=== PATIENT | female | born 1975 | race Caucasian/White ===

== ENCOUNTER 2025-07-25 16:58 | Observation (INO) ==
--- NOTE | 2025-07-25 17:02 | Emergency Department Note ---
Impression & Plan Stroke-like symptoms, Retinal hemorrhage of left eye, Dizziness ED Provider Note NAME: RICCI BURNS AGE: 49 SEX: F : 1975 ARRIVES VIA: Ambulance INFORMANT: Patient ED PROVIDER(S): Stephen Hilliard MD CHIEF COMPLAINT: Vision changes, referred PLAN: Disposition: Admit MEDICAL DECISION MAKING: The patient is a pleasant 49-year-old woman with a past medical history of fibromyalgia who presents to the emergency department via EMS referred by ophthalmology for evaluation of neurologic symptoms where the patient reports having unsteadiness in loss of vision in her left eye which began 2-3 days ago where she reported significant blurred vision in both eyes but then had worsening symptoms in her left eye yesterday. Patient adds that she was also having chest pain for the past 2-3 days and was seen at urgent care and was referred to [place] emergency department where she was seen yesterday and reports that they had ruled out a heart attack. Patient reports ongoing chest pain and neck pain which feels like a burning and has been constant. She has any fevers, chills, cough, congestion. She denies any significant headache. She reports she saw optometry in [place] today and had an eye exam where her left eye was dilated. She reports that she was told she had a "retinal hemorrhage" and they could not see the retina completely and she was referred to a retinal specialist. However, instead of going directly to the retinal specialist which was arranged she drove home accompanied by her teenage daughter instead since she felt to unsteady to drive to the retinal specialist. She did call their office and when she described all of her symptoms she was referred to the emergency department because she understood they suspected she may be having a "neurologic event" due to her symptoms which would not be explained by her optometry exam findings alone. We did attempt to obtain records from [place] and CT imaging was received by our radiology department electronically but images were unable to be uploaded to PACS at this time. On evaluation the patient is no distress, afebrile with heart in the 100s and vital signs otherwise stable. She appears clinically dry. Left eye is dilated secondary to recent ophthalmologic exam. The patient does appear to have gross vision intact of the left eye field of vision but reports difficulty seeing details. 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 Otherwise she exhibits no focal neurologic deficits. Retinal scanner images obtained however poor quality. Retinal versus vitreous hemorrhage noted without overt retinal detachment per my review of the limited view. EKG without overt acute ischemia. CXR negative for acute cardiopulmonary process per my personal preliminary review/interpretation. WBC within normal limits. H/H 10.5/32.9 without prior for comparison. Platelets within normal limits. Chemistry without metabolic acidosis. Electrolytes and LFTs without significant abnormality. High-sensitivity troponin is undetectable. UA without evidence of infection. RBCs are noted. Respiratory BioFire was negative. Lyme screen was negative. CT of the head and CTA of the head and neck were performed were negative for ICH, ischemia or severe narrowing or occlusion of large vessels. Given the patient's report of ongoing unsteadiness patient does agree with plan for admission for further evaluation. LAKSHMI Hoyos PAC with Dr. Correa [facility] hospitalist, to evaluate the patient for admission. Further management per admitting team. Triage Nursing notes reviewed and agree them. Prior/external medical records reviewed Vital Signs: reviewed Differential diagnosis: Infection, dehydration, metabolic abnormality, hypo/hyperglycemia, electrolyte disturbance, anemia, hypoxia, cardiac sources, intracerebral event, toxicologic, neurologic, as well as other pathologies. ER treatment provided: See below. Diagnostics interpreted by me: ECG: Normal sinus rhythm, 88 bpm, no ectopy, no overt ST elevation or depression, QTc 454, QRS 76. Cardiac Monitoring: An order for continuous cardiac monitoring was placed and demonstrated normal sinus rhythm, 88 bpm, no ectopy. Laboratory studies: See below Imaging studies: See below Consultation(s): LAKSHMI Hoyos PAC with Dr. Correa [facility] hospitalist HPI: Per MDM. ROS: See above HPI for pertinent positives & negatives. A total of 10 systems reviewed and were otherwise negative. VITALS:See Below PHYSICAL EXAMINATION: GENERAL: Awake, alert,in no distress HENT: Normocephalic, atraumatic. Oropharynx with dry mucous membranes and otherwise unremarkable. EYES: Normal conjunctiva. Sclera non-icteric. EOMI. No nystagmus. NECK: Supple. No nuchal rigidity. FROM. No JVD. RESPIRATORY: Clear to auscultation. CARDIAC: Regular rate, normal rhythm. Extremities warm and well perfused. Pulses equal. ABDOMEN: Soft, non-distended. No tenderness to palpation. No rebound or guarding. No masses. MUSCULOSKELETAL: Chest examination reveals no tenderness. The back is symmetrical on inspection without obvious abnormality. There is no CVA tenderness to palpation. No joint edema. LOWER EXTREMITIES: Calves are equal size bilaterally and non-tender. No edema. No discoloration. NEURO: Left pupil is dilated secondary to eye exam prior to arrival. Gross vision intact left eye field of vision but with limited acuity. Otherwise, cranial nerves II-XII grossly intact. 5/5 strength and SILT x 4 extremities. Cerebellar function intact including [id number], alternating palms, [id number]. SKIN: No rash or jaundice noted. 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: No Beliefs That Will Affect Care: None Current Living Situation: Spouse and Family Current Living Situation Comment: & 3 adult child (1w/special needs) Feels Safe at Home: Yes Assistive Devices: Glasses Allergies Allergies Allergy/AdvReac Type Severity Reaction Status Date / Time bee venom protein (honey bee) Allergy Unknown Unknown Verified 07/26/25 02:05 Cephalosporins Allergy Hives Verified 07/25/25 18:25 oxycodone Allergy Hives Verified 07/26/25 02:05 Home Meds Home Medications Medication Instructions Recorded Confirmed baclofen 20 mg tablet 20 mg PO BID 07/25/25 07/25/25 diazepam 2 mg tablet 2 mg PO HS PRN Sleep 07/25/25 07/25/25 fluticasone propionate 50 1 spray intranasal DAILY 07/25/25 07/25/25 mcg/actuation nasal spray,suspension levothyroxine 100 mcg tablet 100 mcg PO DAILYBB 07/25/25 07/25/25 omeprazole 20 mg capsule,delayed 20 mg PO DAILYBB 07/25/25 07/25/25 release prednisone 20 mg tablet 20 mg PO DAILY 07/25/25 07/25/25 Results & Data (ED) Vital Signs Vital Signs - 24 hr 07/25/25 17:13 07/25/25 17:14 07/25/25 18:00 Temperature 36.8 C Temperature Source Oral Pulse Rate 94 H 105 H Pulse Rate [Finger] 92 H Pulse Rate from SpO2 Sensor Respiratory Rate 18 20 Blood Pressure 121/79 Blood Pressure [Right Arm] 106/64 Blood Pressure Mean 93 Blood Pressure Mean [Right Arm] 78 Pulse Oximetry 98 99 Oxygen Delivery Method Room Air Room Air Sepsis Recent Fever Within 48 Hours No Sepsis New/Unexplained Change in Mental Status No Sepsis Action Taken by Nursing No Action Required 07/25/25 19:27 07/25/25 20:06 07/25/25 20:30 Temperature Temperature Source Pulse Rate 84 89 80 Pulse Rate [Finger] Pulse Rate from SpO2 Sensor 85 88 76 Respiratory Rate 20 23 18 Blood Pressure 111/76 114/81 122/83 Blood Pressure [Right Arm] Blood Pressure Mean 87 92 96 Blood Pressure Mean [Right Arm] Pulse Oximetry 100 100 100 Oxygen Delivery Method Sepsis Recent Fever Within 48 Hours Sepsis New/Unexplained Change in Mental Status Sepsis Action Taken by Nursing 07/25/25 21:00 07/25/25 21:14 07/25/25 21:33 Temperature Temperature Source Pulse Rate 78 82 88 Pulse Rate [Finger] Pulse Rate from SpO2 Sensor 76 90 Respiratory Rate 20 20 Blood Pressure 114/74 117/87 Blood Pressure [Right Arm] Blood Pressure Mean 87 97 Blood Pressure Mean [Right Arm] Pulse Oximetry 100 100 Oxygen Delivery Method Sepsis Recent Fever Within 48 Hours Sepsis New/Unexplained Change in Mental Status Sepsis Action Taken by Nursing 07/25/25 21:57 07/25/25 22:00 Temperature Temperature Source Pulse Rate 87 89 Pulse Rate [Finger] Pulse Rate from SpO2 Sensor Respiratory Rate 20 21 Blood Pressure Blood Pressure [Right Arm] Blood Pressure Mean Blood Pressure Mean [Right Arm] Pulse Oximetry Oxygen Delivery Method Sepsis Recent Fever Within 48 Hours Sepsis New/Unexplained Change in Mental Status Sepsis Action Taken by Nursing Laboratory Data Attestation: I reviewed the patient's lab results. 07/25/25 17:22 07/25/25 17:22 Lab Results 07/25/25 07/25/25 Range/Units 17:22 17:55 WBC 7.06 (4.8-10.8) K/ul RBC 3.98 L (4.20-5.40) M/uL Hgb 10.5 L (12.0-16.0) g/dl Hct 32.9 L (37.0-47.0) % MCV 82.7 (80.0-100.0) fL MCH 26.4 (25.0-34.0) pg MCHC 31.9 L (32.0-36.0) g/dL RDW Std Deviation 47.0 H (36.4-46.3) fL RDW Coeff of Morena 15.6 H (11.5-14.5) % Plt Count 296 (130-400) K/uL MPV 11.0 (9.4-12.4) fL Immature Gran % (Auto) 0.3 % Neut % (Auto) 58.7 % Lymph % (Auto) 28.6 % Porter % (Auto) 8.4 % Eos % (Auto) 3.0 % Baso % (Auto) 1.0 % Neut # (Auto) 4.15 (1.40-6.50) K/uL Lymph # (Auto) 2.02 (1.20-3.40) K/uL Porter # (Auto) 0.59 (0.11-0.59) K/uL Eos # (Auto) 0.21 (0.00-0.50) K/uL Baso # (Auto) 0.07 (0.00-0.20) K/uL Immature Gran # (Auto) 0.02 (0.01-0.20) K/uL ESR 16 (0-30) mm/hr PT 10.3 (9.0-12.0) Seconds INR 0.9 (0.9-1.1) APTT 25 (21-31) Seconds PTT Ratio 0.9 Sodium 139 (136-145) mmol/L Potassium 3.5 (3.5-5.1) mmol/L Chloride 109 H (98-107) mmol/L Carbon Dioxide 25 (21-32) mmol/L Anion Gap 5 (3-11) BUN 8 (6-23) mg/dl Creatinine 0.78 (0.6-1.2) mg/dl Est Cr Clr Drug Dosing 96.9 ml/min eGFR 92.47 BUN/Creatinine Ratio 10.3 (10-20) Glucose 124 H (70-99(Fasting)) mg/dl Calcium 8.4 L (8.6-10.3) mg/dl Phosphorus 2.2 L (2.5-4.9) mg/dl Magnesium 2.0 (1.7-2.4) mg/dl Total Bilirubin 0.3 (0.2-1.0) mg/dl AST 18 (13-39) U/L ALT 17 (7-52) U/L Alkaline Phosphatase 61 (34-104) U/L Troponin I High Sens < 2.3 (0-14) pg/ml C-Reactive Protein < 0.50 (0-0.5) mg/dl Total Protein 6.4 (6.0-8.3) gm/dl Albumin 3.8 (3.4-5.0) gm/dl Globulin 2.6 (2.5-4.0) gm/dl Albumin/Globulin Ratio 1.5 (0.9-2) Lipase 37 (11-82) U/L Vitamin B12 291 (180-914) pg/ml TSH 3.081 (0.300-4.500) uIu/ml Urine Color Yellow Urine Appearance Clear (Clear) Urine pH 7.0 (4.5-7.5) Ur Specific [place] 1.008 (1.000-1.030) Urine Protein Negative (Negative) Urine Glucose (UA) Negative (Negative) Urine Ketones Negative (Negative) Urine Blood 2+ H (Negative) Urine Nitrite Negative (Negative) Urine Bilirubin Negative (Negative) Urine Urobilinogen Negative (Negative) Ur Leukocyte Esterase Negative (Negative) Urine WBC (Auto) 0-5 (0-5) /hpf Urine RBC (Auto) >20 H (0-2) /hpf U Hyaline Cast (Auto) 0-2 (0-2) /lpf U Epithel Cells (Auto) 0-2 (0-2) /hpf Urine Bacteria (Auto) None Seen (None Seen) Urine Comment Adenovirus (PCR) Not Detected (NotDetected) B. pertussis DNA (PCR) Not Detected (NotDetected) B.parapertussis DNA PCR Not Detected (NotDetected) Lyme Disease Screen Negative (Negative) C. pneumoniae DNA (PCR) Not Detected (NotDetected) Coronavirus OC43 (PCR) Not Detected (NotDetected) Coronavirus HKU1 (PCR) Not Detected (NotDetected) Coronavirus 229E (PCR) Not Detected (NotDetected) SARS-CoV-2 (PCR) Not Detected (NotDetected) Coronavirus NL63 (PCR) Not Detected (NotDetected) Human Metapneumovir PCR Not Detected (NotDetected) Influenza Type A (PCR) Not Detected (NotDetected) Influenza Type B (PCR) Not Detected (NotDetected) M. pneumoniae (PCR) Not Detected (NotDetected) Parainfluenza 1 (PCR) Not Detected (NotDetected) Parainfluenza 2 (PCR) Not Detected (NotDetected) Parainfluenza 3 (PCR) Not Detected (NotDetected) Parainfluenza 4 (PCR) Not Detected (NotDetected) RSV (PCR) Not Detected (NotDetected) Entero/Rhino (PCR) Not Detected (NotDetected) Administered Medications Baclofen (Baclofen 20 Mg Tab) 20 mg PO BID BEATA Stop: 08/25/25 01:59 Last Admin: 07/26/25 03:32 Dose: 20 mg Documented By: MARIS Discontinued Medications Sodium Chloride (Nss) 1,000 mls @ 999 mls/hr IV .Q1H1M ONE Stop: 07/25/25 18:31 Last Infusion: 07/25/25 19:15 Dose: Infused Documented By: Admin: 07/25/25 18:13 Dose: 999 mls/hr Documented By: OJ Potassium Phosphate 9 mmol/ (Sodium Chloride) 253 mls @ 170 mls/hr IV ONE ONE Stop: 07/25/25 23:59 Last Admin: 07/26/25 00:51 Dose: 170 mls/hr Documented By: ASHLEE Ioversol (Optiray 320 125ml) 115 ml IV ONCE ONE Stop: 07/25/25 19:09 Last Admin: 07/25/25 19:09 Dose: 115 ml Documented By: GENIA Lorazepam (Lorazepam 2 Mg/1 Ml Vial) 1 mg IV NOW STA Stop: 07/25/25 23:18 Last Admin: 07/25/25 23:29 Dose: 1 mg Documented By: ASHLEE Imaging Data Radiologist's Impression: Chest X-Ray 07/25/25 17:26 Clinical History: Possible stroke Technique: A frontal view of the chest was obtained Findings: There are no confluent pulmonary infiltrates. The heart size is within normal limits. No pleural effusion or pneumothorax is seen. There is no definite pulmonary nodule. No fracture is noted. No foreign body is seen Impression: No active disease Electronically signed by Zach Harris 07-25-2025 6:[address] 07/25/25 17:26 Technique: Axial computed tomography images were obtained of the brain from the vertex to the skull base without intravenous contrast. Findings: There is no sign of intracranial hemorrhage. There is normal mcnally-white matter differentiation with no sign of acute or old infarction. No midline shift or other form of herniation is identified. There is no hydrocephalus. No obvious mass lesion is seen on this noncontrast examination. The visualized portions of the orbits and paranasal sinuses appear unremarkable. The mastoid air cells appear clear Impression: Unremarkable noncontrast CT of the brain Electronically signed by Zach Harris 07-25-2025 7:28 PM Head CTA 07/25/25 17:26 Technique: Axial computed tomography images were obtained of the brain after the administration of intravenous contrast according to the CT angiogram protocol Findings: No definite stenosis or aneurysm is seen of the anterior, middle, or posterior cerebral artery circulations. The visualized vertebral arteries and the basilar artery appear unremarkable Impression: No definite stenosis or aneurysm of the intracranial arteries Electronically signed by Zach Harris 07-25-2025 7:31 PM Neck CTA 07/25/25 17:26 Technique: Axial computed tomography images were obtained of the neck after the administration of intravenous contrast according to the CT angiogram protocol Findings: No stenosis is seen of the common carotid arteries bilaterally. The carotid bulbs appear normal. The remainder of the internal carotid arteries appear patent bilaterally. No stenosis of the external carotid arteries is seen The vertebral arteries are patent bilaterally with no significant stenosis seen. The visualized thoracic aorta appears unremarkable Impression: No definite stenosis of the neck arteries Electronically signed by Zach Harris 07-25-2025 7:32 PM Brain MRI 07/25/25 21:52 EXAM: MR brain wo con CLINICAL HISTORY: cva, ms, cerebritis workup TECHNIQUE: Multisequential and multiplanar images of the brain were submitted for review without contrast. COMPARISON: CT, 07/25/2025 17:38:00 WEED THINNER FINDINGS: The brain shows normal morphology, signal intensity, and volume for age. No focal parenchymal lesions are seen. No intracranial hemorrhage, mass effect, midline shift, extra-axial collection, or hydrocephalus is identified. Ventricles, sulci, and basal cisterns are symmetric and normal in size and configuration. Diffusion-weighted sequences show no evidence of acute ischemic infarction. Midline structures including the pituitary gland, corpus callosum, pineal region, and brainstem are unremarkable. The craniovertebral junction is within normal limits. No calvarial abnormalities are identified. The paranasal sinuses and mastoid air cells are clear. Orbital structures are unremarkable. Appropriate flow voids are present in the visualized intracranial vessels. IMPRESSION: 1. No acute ischemia, space occupying mass, or other acute intracranial pathology is demonstrated. 2. No interval changes. Electronically signed by Jamie Cunningham 07-26-2025 01:28 AM Discharge Plan Visit Data Chief Complaint: Neuro Symptoms/Deficit Stated Complaint: NEURO SX, VISUAL & BALANCE ISSUES ED Provider: Stephen Hilliard Discharge Problem: Stroke-like symptoms, Retinal hemorrhage of left eye, Dizziness Patient Disposition: Admitted As Inpatient Condition: Fair Discharge Instructions Interventions: ED Discharge Assessment Last Done: 07/26/25 01:31
[2025-07-25 17:49] LABS: Hematocrit (blood only) 32.9 % (37.0-47.0); Hemoglobin 10.5 g/dl (12.0-16.0); Immature Granulocytes # (auto) 0.02 K/uL (0.01-0.20); Immature Granulocytes % (auto) 0.3 %; Mean Corpuscular Hemoglobin 26.4 pg (25.0-34.0); Mean Corpuscular Volume 82.7 fL (80.0-100.0); Platelet Count 296 K/uL (130-400); RDW Standard Deviation 47.0 fL (36.4-46.3); Red Blood Count 3.98 M/uL (4.20-5.40); White Blood Count 7.06 K/ul (4.8-10.8)
[2025-07-25 18:07] LABS: Alanine Aminotransferase 17 U/L (7-52); Albumin Globulin Ratio 1.5 (0.9-2); Alkaline Phosphatase 61 U/L (34-104); Anion Gap 5 (3-11); Bilirubin,Total 0.3 mg/dl (0.2-1.0); Blood Urea Nitrogen 8 mg/dl (6-23); Calcium 8.4 mg/dl (8.6-10.3); Carbon Dioxide 25 mmol/L (21-32); Chloride 109 mmol/L (98-107); Creatinine Clr Calc Pharmacy 96.9 ml/min; Globulin 2.6 gm/dl (2.5-4.0); Glucose 124 mg/dl (70-99(Fasting)); Lipase 37 U/L (11-82); Magnesium 2.0 mg/dl (1.7-2.4); Potassium 3.5 mmol/L (3.5-5.1); Sodium 139 mmol/L (136-145); Total Protein 6.4 gm/dl (6.0-8.3)
[2025-07-25] MEDS: SODIUM CHLORIDE 0.9% 1,000 ML IV ONE (18:13)
[2025-07-25 18:16] LABS: Appearance Urine Clear (Clear); Bacteria Urine Automated None Seen (None Seen); Cast Urine Automated 0-2 /lpf (0-2); Epithelial Cell Urine Auto 0-2 /hpf (0-2); Glucose Urine UA Negative (Negative); RBC Urine Automated >20 /hpf (0-2); WBC Urine Automated 0-5 /hpf (0-5)
--- NOTE | 2025-07-25 18:16 | XRay Report ---
Clinical History: Possible stroke Technique: A frontal view of the chest was obtained Findings: There are no confluent pulmonary infiltrates. The heart size is within normal limits. No pleural effusion or pneumothorax is seen. There is no definite pulmonary nodule. No fracture is noted. No foreign body is seen Impression: No active disease Electronically signed by Zach Harris 07-25-2025 6:16 PM
[2025-07-25 18:17] LABS: INR 0.9 (0.9-1.1); Partial Thromboplastin Time 25 Seconds (21-31); Prothrombin Time 10.3 Seconds (9.0-12.0)
[2025-07-25 18:23] LABS: Thyroid Stimulating Hormone 3.081 uIu/ml (0.300-4.500)
[2025-07-25 19:01] LABS: Chlamydia pneumoniae PCR Not Detected (NotDetected); Coronavirus 229E PCR Not Detected (NotDetected); Coronavirus CoV-2 (COVID19)PCR Not Detected (NotDetected); Coronavirus HKU1 PCR Not Detected (NotDetected); Coronavirus NL63 PCR Not Detected (NotDetected); Coronavirus OC43PCR Not Detected (NotDetected); Human Metapneumovirus PCR Not Detected (NotDetected); Parainfluenza Virus 1 PCR Not Detected (NotDetected); Parainfluenza Virus 2 PCR Not Detected (NotDetected); Parainfluenza Virus 3 PCR Not Detected (NotDetected); Parainfluenza Virus 4 PCR Not Detected (NotDetected); Respiratory Syncytial VirusPCR Not Detected (NotDetected); Rhinovirus/Enterovirus PCR Not Detected (NotDetected)
[2025-07-25] MEDS: OPTIRAY 320 125ml IV ONE (19:09)
--- NOTE | 2025-07-25 19:29 | CT Scan Report ---
Technique: Axial computed tomography images were obtained of the brain from the vertex to the skull base without intravenous contrast. Findings: There is no sign of intracranial hemorrhage. There is normal mcnally-white matter differentiation with no sign of acute or old infarction. No midline shift or other form of herniation is identified. There is no hydrocephalus. No obvious mass lesion is seen on this noncontrast examination. The visualized portions of the orbits and paranasal sinuses appear unremarkable. The mastoid air cells appear clear Impression: Unremarkable noncontrast CT of the brain Electronically signed by Zach Harris 07-25-2025 7:28 PM
--- NOTE | 2025-07-25 19:31 | CT Scan Report ---
Technique: Axial computed tomography images were obtained of the brain after the administration of intravenous contrast according to the CT angiogram protocol Findings: No definite stenosis or aneurysm is seen of the anterior, middle, or posterior cerebral artery circulations. The visualized vertebral arteries and the basilar artery appear unremarkable Impression: No definite stenosis or aneurysm of the intracranial arteries Electronically signed by Zach Harris 07-25-2025 7:31 PM
--- NOTE | 2025-07-25 19:32 | CT Scan Report ---
Technique: Axial computed tomography images were obtained of the neck after the administration of intravenous contrast according to the CT angiogram protocol Findings: No stenosis is seen of the common carotid arteries bilaterally. The carotid bulbs appear normal. The remainder of the internal carotid arteries appear patent bilaterally. No stenosis of the external carotid arteries is seen The vertebral arteries are patent bilaterally with no significant stenosis seen. The visualized thoracic aorta appears unremarkable Impression: No definite stenosis of the neck arteries Electronically signed by Zach Harris 07-25-2025 7:32 PM
--- NOTE | 2025-07-25 21:52 | History & Physical Report ---
Date of Service July 25, 2025 Assessment & Plan (1) Stroke-like symptoms: (2) Retinal hemorrhage of left eye: (3) Ambulatory dysfunction: Plan Patient is a 49-year-old female with a past medical history of Deonte thyroiditis, fibromyalgia, lupus, Raynaud's disease, iron deficiency anemia, factor V Leiden. Patient presented for a neurologic workup after several days of dizziness, balance issues, speech deficits, or blurry vision. She was found to have a retinal hemorrhage with an records technician 07/25. Is being admitted for further neurologic workup including MRI. #ambulatory dysfunction/speech deficits/dizzinesspatient with many nonspecific neurologic symptoms. Head CT and CTAs negative in the ED. Mild hypophosphatemia however unlikely to be contributing to symptoms. TSH WNL. No signs of acute infectionno leukocytosis, VSS, CXR and UA negative. Differential includes but not limited to CVA, demyelinating process, lupus cerebritis. Ordered sed rate, CRP, B12, tick panel Ordered brain MRI and cervical spine MRI Stroke without TNK order set; PT/OT ordered, A1c and lipid panel with a.m. labs, echocardiogram Neurology consulted #HypophosphatemiaPhos 2.2, K3.5, mag 2.0, renal function stable. 9 mL K-Phos admission Trend phosphorus and BMP #Retinal hemorrhagediagnosed by records technician 07/25, was never referral to retinal specialist however came into the ED Ensure referral on discharge #Chest painpatient reports intermittent burning chest pain for 2 to 3 days. CTA and CXR negative. EKG ordered Echocardiogram with stroke workup as above Monitor on telemetry EKG with chest pain as needed #Hematurianoted on urinalysis. Patient stated it has always been this way. Consider referral to outpatient urologist for possible cystoscopy in near future. #Deonte's thyroiditiscontinue levothyroxine #Lupuspatient takes prednisone as needed approximately once a month #Fibromyalgiacontinue baclofen #Insomniacontinue diazepam as needed Ordered melatonin as needed #Factor V Leidenreported in [facility] records, neurological event in 2001 however patient said this was very nonspecific and she does not remember the event. VTE ppx: SCDs, high risk with factor V Leiden however brain MRI pending Dispo: med/tele Admission and Anticipated Discharge Date Admission Date: 07/25/25 History of Present Illness Chief Complaint: neuro symptoms Primary Care Provider: Jerrell Lopez MD Patient is a 49-year-old female with a past medical history of Deonte thyroiditis, fibromyalgia, lupus, Raynaud's disease, iron deficiency anemia, factor V Leiden. Patient presented for a neurologic workup after several days of dizziness, balance issues, speech deficits, or blurry vision. She was found to have a retinal hemorrhage with an records technician 07/25. Is being admitted for further neurologic workup including MRI. Patient seen at bedside with her 2 daughters and son-in-law present. Patient stated that she follows with Dr. Lopez who is a private practice however has previously followed with [facility] and still [facility] this past winter. Patient stated symptoms over the past 2 to 3 weeks have been worsening and she has had a significant decline after a migraine approximately 1 week ago. Her migraine was in her left eye and caused her to vomit significantly. Since then she has had dyspnea, heart palpitations, achy chest pain, shakiness, dizziness, insomnia, confusion, difficulty finding words, balance issues, and left eye fuzziness. She does not use a walker or cane at baseline however has had issues ambulating with her current balance issues. Her daughter noted she had difficulty on the stairs outside which she has never had an issue with before. Patient also states she had vision loss of her left eye 2 to 3 days ago, she can see outlines of figures however not specifics. Patient went to [facility] ER yesterday due to the chest pain and stated she had a CT of her chest which was negative however they stated no imaging of her head for neurologic symptoms. She went to her records technician today who dilated her left pupil and diagnosed her with a retinal/vitreous left eye hemorrhaging placed her for an urgent referral to a retinal physician. She ended up not going because when she called them they told her to come into the ED for stroke workup. She currently is relatively asymptomatic at bedside other than left vision loss however symptoms come and go. Her family is greatly concerned about her recent decline. Patient denies any nicotine use. She has 1-2 alcohol beverages occasionally, denies daily use. She denies past history of CVA or family history of CVA. She takes prednisone approximately once a month with a rash associated with her menses, last took this 2 days ago. She has a noted history of factor V 5 Leyden with a neurologic event in 2001 however stated she was never diagnosed with anything specific and this was during her period. Noted she was treated for Lyme's disease in 2011 which she stated was undiagnosed for 30 years. She denies any recent tick bites. She is due for her evening medications, ordered. She wishes to be full code. Regarding 2+ blood seen on urinalysis, patient stated this is always there and she has never had any further workup. Discussed outpatient referral to urology for further workup including cystoscopy. Patient was previously seen by [facility] rheumatology however is being admitted to [facility] due to insurance. Reviewed [facility] rheumatology records from 09/06/2023. Previous RENZO 160, negative Cisse and DNA antibodies. Noted history of factor V Leyden and neurologic event in 2011, RAISA, lupus erythematous/discoid lupus. Allergies Allergy/AdvReac Type Severity Reaction Status Date / Time bee venom protein (honey bee) Allergy Unknown Unknown Verified 07/26/25 02:05 Cephalosporins Allergy Hives Verified 07/25/25 18:25 oxycodone Allergy Hives Verified 07/26/25 02:05 Home Medications Medication Instructions Recorded Confirmed Type baclofen 20 mg tablet 20 mg PO BID 07/25/25 07/25/25 History diazepam 2 mg tablet 2 mg PO HS PRN Sleep 07/25/25 07/25/25 History fluticasone propionate 50 1 spray intranasal DAILY 07/25/25 07/25/25 History mcg/actuation nasal spray,suspension levothyroxine 100 mcg tablet 100 mcg PO DAILYBB 07/25/25 07/25/25 History omeprazole 20 mg capsule,delayed 20 mg PO DAILYBB 07/25/25 07/25/25 History release prednisone 20 mg tablet 20 mg PO DAILY 07/25/25 07/25/25 History Past Med/Surg History Problem List (Updated 07/26/25 @ 09:52 by Mario Angel MD) Malaise and fatigue Dizziness (Acute) Ambulatory dysfunction Retinal hemorrhage of left eye (Acute) Stroke-like symptoms (Acute) Medical History (Updated 07/26/25 @ 09:52 by Mario Angel MD) Fibromyalgia Social History Smoking Status: Never smoker Tobacco Type: Cigarettes Hx Alcohol Use: Yes Alcohol type: beer and other Hx Substance Use: No Preferred Language: Irish Communication Ability: Effective Cement Based Materials Pump Tender Required: No Beliefs That Will Affect Care: None Current Living Situation: Spouse and Family Current Living Situation Comment: & 3 adult child (1w/special needs) Feels Safe at Home: Yes Assistive Devices: Glasses Review of Systems Review of Systems: see HPI Physical Exam Physical Exam: The patient is awake, alert and oriented 3, well developed and well nourished, normocephalic and atraumatic, in no acute distress. Non-toxic appearing. HEENT- EOMI, mucous membranes moist. Hearing grossly intact. Left pupil less reactive, dilated in office today. Heart-normal S1 and S2. No murmurs, rubs or gallops. Lungs-clear bilaterally, no respiratory distress, no accessory muscle use. Abdomen-normal bowel sounds and soft. No ascites noted. Non-tender. Extremities- no clubbing, cyanosis, or edema. Rheumatologic-normal range of motion. Psychiatric-normal affect. Musculoskeletal: no cyanosis or clubbing, extremities motor strength 5/5 Neurologic: CN's II-XI intact bilaterally; no focal motor deficits and not confused Motor/Sensory: no sensory deficit Coordination: normal [id number] test Results & Data Results & Data Vital Signs (Past 12 Hours) Vital Signs Temp Pulse Pulse Resp BP BP Pulse Ox 07/25/25 21:14 82 07/25/25 20:06 89 23 114/81 100 07/25/25 19:27 84 20 111/76 100 07/25/25 18:00 92 H 20 106/64 99 07/25/25 17:14 36.8 C 105 H 18 121/79 98 07/25/25 17:13 94 H O2 Del Method 07/25/25 21:14 07/25/25 20:06 07/25/25 19:27 07/25/25 18:00 Room Air 07/25/25 17:14 Room Air 07/25/25 17:13 Laboratory Results reviewed CBC, CMP, PT/INR, ESR, magnesium, troponin, CRP, TSH, B12, UA BioFire, tick panel Diagnostic Findings reviewed CXR, head CT, head CTA, neck CTA, brain MRI, cervical spine MRI Medications Administered ED1L NSS Code Status & VTE Plan Code Status full code VTE Prophylaxis Plan VTE Prophylaxis will be ordered: Yes Supervising Physician Co-Signing Physician Notes Attending addendum: I have physically seen this patient, have supervised the KRAIG's activities, and agree with the H&P unless as otherwise noted. Assessment and Plan: The patient is a 49-year-old female with a past medical history including Deonte's thyroiditis, fibromyalgia, discoid lupus, Raynaud's disease, iron deficiency anemia and factor V Leiden. She presented to the emergency department due to several days of dizziness, imbalance, ambulatory dysfunction, speech deficits, and blurred vision. She was seen by ophthalmology on 03/24, found to have retinal hemorrhage. She did have an independently examination with drops in left eye only. [facility] and treatment. Strokelike symptoms/ambulatory dysfunction/speech deficits/dizziness- CT of head without contrast negative CTA head and neck negative BioFire testing negative Chest x-ray negative ESR, CRP tick panel added Order MRI of brain and cervical spine Stroke without thrombolytic order set Consult PT/OT Check a fasting blood panel and hemoglobin A1c Order echocardiogram Consult neurology Hypophosphatemia- Phosphorus 2.2, potassium 3.5, and magnesium 2.0 9 mmol K-Phos ordered Follow serial laboratories for phosphorus and BMP Retinal hemorrhage left eye- Follow-up outpatient with ophthalmology, was evaluated on 07/25 by ophthalmology. Chronic microscopic hematuria- Patient reports this is a chronic finding, in addition to stated Chest pain/burning- Intermittently over the past 2 to 3 days Imaging negative above Echocardiogram ordered Normal troponin on admission, follow serially Discoid lupus- order MRI brain to assess for possible cerebritis Reports taking prednisone approximately once per month Fibromyalgia- Continue baclofen Factor V Leiden- Reports a neurologic event in 2001, Found [facility] records,, patient does not remember this workup PG Care Time/CCT Total # of Minutes Spent Total Time Spent with Patient: Total time spent is greater than 50% in coordination of care (as documented) at patient's floor/unit and/or counseling patient: Coding Level of Care Code 08070 INT INP/OBS CARE 3/75MIN Diagnoses Stroke-like symptoms R29.90 Retinal hemorrhage of left eye H35.62 Ambulatory dysfunction R26.2
[2025-07-25] MEDS ORDERED: POTASSIUM PHOS 3 MMOL/1 ML INFUSION IV STA (22:03)
[2025-07-26] MEDS: POTASSIUM PHOSPHATE 9 MMOL in SODIUM CHLORIDE 0.9% 250 ML IV ONE (00:51)
--- NOTE | 2025-07-26 01:28 | Magnetic Resonance Report ---
EXAM: MR brain wo con CLINICAL HISTORY: cva, ms, cerebritis workup TECHNIQUE: Multisequential and multiplanar images of the brain were submitted for review without contrast. COMPARISON: CT, 07/25/2025 17:38:00 EGG SETTER FINDINGS: The brain shows normal morphology, signal intensity, and volume for age. No focal parenchymal lesions are seen. No intracranial hemorrhage, mass effect, midline shift, extra-axial collection, or hydrocephalus is identified. Ventricles, sulci, and basal cisterns are symmetric and normal in size and configuration. Diffusion-weighted sequences show no evidence of acute ischemic infarction. Midline structures including the pituitary gland, corpus callosum, pineal region, and brainstem are unremarkable. The craniovertebral junction is within normal limits. No calvarial abnormalities are identified. The paranasal sinuses and mastoid air cells are clear. Orbital structures are unremarkable. Appropriate flow voids are present in the visualized intracranial vessels. IMPRESSION: 1. No acute ischemia, space occupying mass, or other acute intracranial pathology is demonstrated. 2. No interval changes. Electronically signed by Jamie Cunningham 07-26-2025 01:28 AM
--- NOTE | 2025-07-26 01:40 | Magnetic Resonance Report ---
EXAM: MR cervical spine wo con CLINICAL HISTORY: left ue tingling TECHNIQUE: Multisequential and multiplanar images of the cervical spine were submitted for review without contrast. COMPARISON: none FINDINGS: Straightening of the cervical lordosis. Small T1/T2 hypointense focus seen in C5 vertebral body. The cord is normal in caliber and signal. There is no cerebellar ectopia. No abnormal bone marrow signal demonstrated throughout the cervical spine to suggest a fracture. C2-C3: No disc herniation. No central canal stenosis or neuroforaminal narrowing. C3-C4: Small posterior disc osteophyte complex indenting thecal sac. No significant central canal stenosis or neuroforaminal narrowing. C4-C5: Small posterior disc osteophyte complex indenting thecal sac. No significant central canal stenosis or neuroforaminal narrowing. C5-C6: Small posterior disc osteophyte complex indenting thecal sac. No significant central canal stenosis or neuroforaminal narrowing. C6-C7: No disc herniation. No central canal stenosis or neuroforaminal narrowing. C7-T1: No disc herniation. No central canal stenosis or neuroforaminal narrowing. The visualized paraspinal soft tissues are grossly unremarkable. IMPRESSION: 1. C3-C4: Small posterior disc osteophyte complex indenting thecal sac. No significant central canal stenosis or neuroforaminal narrowing. 2. C4-C5: Small posterior disc osteophyte complex indenting thecal sac. No significant central canal stenosis or neuroforaminal narrowing. 3. C5-C6: Small posterior disc osteophyte complex indenting thecal sac. No significant central canal stenosis or neuroforaminal narrowing. 4. Small T1/T2 hypointense focus seen in C5 vertebral body. Electronically signed by Jamie Cunningham 07-26-2025 01:40 AM
[2025-07-26] MEDS ORDERED: PHARMACIST DISCHARGE MED REC CONSULT PRN (02:00)
[2025-07-26] MEDS ORDERED: ONDANSETRON INJ 2 MG/ML 2 ML VIAL IV PRN (02:00)
[2025-07-26] MEDS ORDERED: MELATONIN 3 MG TAB PO PRN (02:00)
[2025-07-26] MEDS ORDERED: ACETAMINOPHEN 325 MG TAB PO PRN (02:00)
[2025-07-26] MEDS ORDERED: POLYETHYLENE (MIRALAX) 17 GM PACK PO PRN (02:00)
[2025-07-26] MEDS: BACLOFEN 20 MG TAB PO SCH (03:32)
[2025-07-26] MEDS: LEVOTHYROXINE SODIUM 100 MCG TABLET PO SCH (06:24)
[2025-07-26 06:25] LABS: Hematocrit (blood only) 30.1 % (37.0-47.0); Hemoglobin 10.0 g/dl (12.0-16.0); Immature Granulocytes # (auto) 0.03 K/uL (0.01-0.20); Immature Granulocytes % (auto) 0.4 %; Mean Corpuscular Hemoglobin 27.3 pg (25.0-34.0); Mean Corpuscular Volume 82.2 fL (80.0-100.0); Platelet Count 260 K/uL (130-400); RDW Standard Deviation 46.7 fL (36.4-46.3); Red Blood Count 3.66 M/uL (4.20-5.40); White Blood Count 7.39 K/ul (4.8-10.8)
[2025-07-26 07:38] LABS: Hemoglobin A1C 5.6 % (4.5-5.6)
[2025-07-26 07:40] LABS: Alanine Aminotransferase 18.0 U/L (7-52); Albumin Globulin Ratio 1.4 (0.9-2); Alkaline Phosphatase 54.0 U/L (34-104); Anion Gap 5.0 (3-11); Bilirubin,Total 0.3 mg/dl (0.2-1.0); Blood Urea Nitrogen 8.0 mg/dl (6-23); Calcium 8.0 mg/dl (8.6-10.3); Carbon Dioxide 24.0 mmol/L (21-32); Chloride 110.0 mmol/L (98-107); Cholesterol 190.0 mg/dl (0-200); Creatinine Clr Calc Pharmacy 109.1 ml/min; Globulin 2.3 gm/dl (2.5-4.0); Glucose 87.0 mg/dl (70-99(Fasting)); HDL Cholesterol 48.0 mg/dl; Magnesium 1.9 mg/dl (1.7-2.4); Potassium 3.8 mmol/L (3.5-5.1); Sodium 139.0 mmol/L (136-145); Total Protein 5.6 gm/dl (6.0-8.3); Triglycerides 155.0 mg/dl (0-150)
[2025-07-26] MEDS: FLUTICASONE PROPIONATE NA SPR 16 GM BTL SCH (07:42)
--- NOTE | 2025-07-26 09:42 | Neurology Consultation ---
Date of Consultation July 26, 2025 Assessment & Plan (1) Malaise and fatigue: History of Present Illness Attending Physician: Naif Lance MD History of Present Illness S: pt this morning still feeling not well. pt has not been feeling well for few weeks per pt. hard to describe her symptoms but feels weak globally and lightheaded and almost like viral syndrome. mri brain negative. chart reviewed. pt does have hx of SLE and recently found to have left retinal hemorrahge. admission HPI: The patient is a pleasant 49-year-old woman with a past medical history of fibromyalgia who presents to the emergency department via EMS referred by ophthalmology for evaluation of neurologic symptoms where the patient reports having unsteadiness in loss of vision in her left eye which began 2-3 days ago where she reported significant blurred vision in both eyes but then had worsening symptoms in her left eye yesterday. Patient adds that she was also having chest pain for the past 2-3 days and was seen at urgent care and was referred to [place] emergency department where she was seen yesterday and reports that they had ruled out a heart attack. Patient reports ongoing chest pain and neck pain which feels like a burning and has been constant. She has any fevers, chills, cough, congestion. She denies any significant headache. She reports she saw optometry in [place] today and had an eye exam where her left eye was dilated. She reports that she was told she had a "retinal hemorrhage" and they could not see the retina completely and she was referred to a retinal specialist. However, instead of going directly to the retinal specialist which was arranged she drove home accompanied by her teenage daughter instead since she felt to unsteady to drive to the retinal specialist. She did call their office and when she described all of her symptoms she was referred to the emergency department because she understood they suspected she may be having a "neurologic event" due to her symptoms which would not be explained by her optometry exam findings alone. We did attempt to obtain records from [place] and CT imaging was received by our radiology department electronically but images were unable to be uploaded to PACS at this time. On evaluation the patient is no distress, afebrile with heart in the 100s and vital signs otherwise stable. She appears clinically dry. Left eye is dilated secondary to recent ophthalmologic exam. The patient does appear to have gross vision intact of the left eye field of vision but reports difficulty seeing details. Visual acuity 20/40 OD and 20/70 OS per transportation coordinator. Otherwise she exhibits no focal neurologic deficits. Retinal scanner images obtained however poor quality. Retinal versus vitreous hemorrhage noted without overt retinal detachment per my review of the limited view. EKG without overt acute ischemia. CXR negative for acute cardiopulmonary process per my personal preliminary review/interpretation. WBC within normal limits. H/H 10.5/32.9 without prior for comparison. Platelets within normal limits. Chemistry without metabolic acidosis. Electrolytes and LFTs without significant abnormality. High-sensitivity troponin is undetectable. UA without evidence of infection. RBCs are noted. Respiratory BioFire was negative. Lyme screen was negative. CT of the head and CTA of the head and neck were performed were negative for ICH, ischemia or severe narrowing or occlusion of large vessels. Given the patient's report of ongoing unsteadiness patient does agree with plan for admission for further evaluation. Allergies Allergy/AdvReac Type Severity Reaction Status Date / Time bee venom protein (honey bee) Allergy Unknown Unknown Verified 07/26/25 02:05 Cephalosporins Allergy Hives Verified 07/25/25 18:25 oxycodone Allergy Hives Verified 07/26/25 02:05 Home Medications Medication Instructions Recorded Confirmed Type baclofen 20 mg tablet 20 mg PO BID 07/25/25 07/25/25 History diazepam 2 mg tablet 2 mg PO HS PRN Sleep 07/25/25 07/25/25 History fluticasone propionate 50 1 spray intranasal DAILY 07/25/25 07/25/25 History mcg/actuation nasal spray,suspension levothyroxine 100 mcg tablet 100 mcg PO DAILYBB 07/25/25 07/25/25 History omeprazole 20 mg capsule,delayed 20 mg PO DAILYBB 07/25/25 07/25/25 History release prednisone 20 mg tablet 20 mg PO DAILY 07/25/25 07/25/25 History Patient History Medical History (Updated 07/26/25 @ 09:52 by Mario Angel MD) Fibromyalgia Social History Smoking Status: Never smoker Tobacco Type: Cigarettes Hx Alcohol Use: Yes Alcohol type: beer and other Hx Substance Use: No Preferred Language: Kazakh Communication Ability: Effective Kettle Loader Required: No Beliefs That Will Affect Care: None Current Living Situation: Spouse and Family Current Living Situation Comment: & 3 adult child (1w/special needs) Feels Safe at Home: Yes Assistive Devices: Glasses Exam (Neuro) Physical Exam: HEENT: normocephalic grossly Neuro: Mental: AOx4, fluent speech, normal comprehension, no apraxia, no L/R confusion, no neglect CN: PERRL, Full EOM, symmetric face, overall visual field grossly intact b/l. Motor: No abnormal movements, normal tone, 5-/5 t/o bilaterally Sens: intact to touch b/l grossly Coord: intact FNT b/l DTR: 1+ sym b/l Impression: 49 yo female with general malaise and left retinal hemorrhage in setting of SLE, anemia. DDx including viral syndrome vs SLE flare up with including Lupus cerebritis. Retinal hemorrhage from acute SLE is rare but can suggest systemic inflammation. MRI brain not suggestive of stroke. Recommendations: -consider getting rheumatology consultat ion for for need for CSF studies and high dose steroid tx. not much else to add from neurology at this point. continue medical work up and evaluation as planned. call again if new question. Chart reviewed I have spent more than 50% educating patient about potential diagnosis and neurological evaluation and coordinating care with patient's treatment team. Total time spent (including chart review and coordination of care): 60 min (this includes chart review). Results & Data Vital Signs (Past 12 Hours) Vital Signs Temp Pulse Pulse Resp BP Pulse Ox O2 Del Method 07/26/25 08:00 Room Air 07/26/25 07:51 36.5 C 91 H 20 99/64 L 97 Room Air 07/26/25 02:03 88 07/26/25 01:50 Room Air 07/26/25 01:50 36.4 C L 93 H 16 131/79 99 Room Air 07/26/25 01:00 94 H 18 116/83 97 Room Air 07/25/25 22:21 88 18 100 07/25/25 22:18 88 15 100 07/25/25 22:00 89 21 07/25/25 21:57 87 20 PG Care Time/CCT Total # of Minutes Spent Total Time Spent with Patient: Total time spent is greater than 50% in coordination of care (as documented) at patient's floor/unit and/or counseling patient: Coding Level of Care Code 76078 IN/OBS CONSULT LVL 4,60M Diagnoses Malaise and fatigue R53.81; R53.83
[2025-07-26 11:04] VITALS: RESP 18
--- NOTE | 2025-07-26 12:48 | Hospitalist Progress Note ---
Date of Service July 26, 2025 Assessment & Plan (1) Stroke-like symptoms: (2) Ambulatory dysfunction: (3) Vitreous hemorrhage of left eye: (4) Dizziness: (5) Malaise and fatigue: (6) Fibromyalgia: (7) Discoid lupus: (8) Deonte thyroiditis: (9) Hypothyroidism: (10) Chronic right flank pain: (11) Chest pain: Plan 49yo female with history of Deonte's thyroiditis/hypothyroidism, fibromyalgia, discoid lupus, Raynaud's disease, iron deficiency anemia, factor V Leiden mutation. Patient presented with 2-3 days of dizziness, balance issues, speech deficits, left eye blurry vision, and dyspnea/pleuritic type chest discomfort. She was found to have a left eye vitreous hemorrhage with optometry in [place] on 07/25 and was advised urgent referral to a retinal specialist to ensure she did not have a retinal detachment with retinal bleeding. No trauma to the face/eye by report. She has also gone earlier this week to [facility] due to the cp/dyspnea and, by report, had CT chest that was negative; we have requested that CT report from [facility]. #ambulatory dysfunction/speech deficits/dizziness/other symptoms -extensive w/u to date negative including the following: * MRI brain * MRI cervical spine * CTA head/neck * echocardiogram * sed rate/crp * telemetry * nothing infectious found to date including lyme screen, anaplasmosis screen, u/a, cxr -she has borderline low B12 level which could contribute to her anemia and fatigue -will check Fe levels & folic acid level in am -with her fatigue, cervical lymphadenopathy, ?axillary lymph nodes - obtain CTA chest report; consider CT a/p; consider peripheral smear; check mono & CMV titers -exact cause of presentation very uncertain at this time as extensive w/u has been unrevealing -appreciate neuro consult -with dizziness - check orthostatic BPs #Hypophosphatemia -Phos 2.2 upon presentation -s/p IV replacement -today's level wnl -doubt this contributed to any of her presenting symptoms #left eye vitreous hemorrhage -diagnosed by optometry in [place] on 07/25 -was referred to a Dr Barnett at [facility] but did not make it to that appt as she got admitted here -will have secretarial staff called [facility] to determine the next available urgent appt for Ms Laredo (preferably the day she is discharged) #chest pain - -resolved -obtain CTA chest report from [facility] -echo here with normal LV function and normal LV wall motion -troponin negative -unlikely cardiac in etiology -await CT report #hematuria - -noted on urinalysis -chronic per patient -with her right flank pain will obtain CT a/p for further characterization - r/o obstructing stone, etc. #Deonte's thyroiditis -TSH wnl -continue levothyroxine #discoid Lupus -by report patient takes prednisone as needed approximately once a month? -discussed her care with Dr Lugo --- in light of exam findings, normal ESR/CRP, etc unlikely to have systemic SLE at this time -no discoid lupus lesions at this time as well #Fibromyalgia -continue baclofen #Insomnia -continue diazepam as needed -melatonin as needed #Factor V Leiden - -reported in [employer] records by report -?neurological event in 2001? -patient states she does not remember the event -no h/o VTE observe overnight obtain CT a/p along with other labs Admission and Anticipated Discharge Date Admission Date: July 25, 2025 Subjective tele overnight wnl patient apparently did not sleep all night last pm and thus, during my visit, was quite tired (she had lights off, blinds drawn, etc) multitude of complaints - 1. fatigue 2. recent dizziness 3. left ocular visual change -we requested records from eye provider in [place] - vitreous hemorrhage suspected, but could not rule out retinal bleed from detachment 4. pleuritic cp and dyspnea - went to [facility] for such; had CT chest - was told "everything was normal" 5. swollen glands in neck and armpits? 6. stress due to having 2 adult children with significant medical issues - 1 adult child has Autism, another has significant physical disabilities & ailments - latter son to have work-up and visits at [facility] previously saw Dr Lugo at [facility] I spoke with Dr Lugo - has never had systemic SLE, just discoid Lupus Review of Systems Review of Systems: gen - no fevers or chills, no weight loss; eating normally mouth - no sores/ulcers skin - no recent rashes musculo - no joint swelling back/GI - chronic right flank discomfort but nothing anteriorly or central neuro - no paresthesias or focal weakness; just generally weak cv - no pleuritic cp pulm - no dyspnea at rest Physical Exam Physical Exam: gen - looks chronically unwell/tired-appearing, otherwise NAD eyes - PERRL; sclera/conjunctiva clear neck - no JVD; +lymph nodes b/l; no goiter axillae - ?lymph node on left (1cm or larger) but uncertain mouth - no ulcers heart - RRR, s1 s2, no murmur lungs - CTA b/l abd - soft, spleen tip palpable?, BS+, NT, no hepatomegaly, ND ext - no edema, pulses b/l feet 2+ b/l skin - no rashes musculo - no synovitis any joint (small or large x 4 exts) psych - restricted affect, a/o x 3 Results & Data Results & Data Vital Signs (Past 12 Hours) Vital Signs Temp Pulse Pulse Resp BP Pulse Ox O2 Del Method 07/26/25 11:02 36.5 C 90 18 99/65 L 97 Room Air 07/26/25 08:00 Room Air 07/26/25 07:51 36.5 C 91 H 20 99/64 L 97 Room Air 07/26/25 07:00 78 07/26/25 02:03 88 07/26/25 01:50 Room Air 07/26/25 01:50 36.4 C L 93 H 16 131/79 99 Room Air 07/26/25 01:00 94 H 18 116/83 97 Room Air Laboratory Results Laboratory Results - last 24 hr 07/26/25 05:22 Sodium 139 Potassium 3.8 Chloride 110 H Carbon Dioxide 24 Anion Gap 5 BUN 8 Creatinine 0.69 Est Cr Clr Drug Dosing 109.1 eGFR 105.66 BUN/Creatinine Ratio 11.6 Glucose 87 Estimat Average Glucose 114 Hemoglobin A1c 5.6 Calcium 8.0 L Phosphorus 3.6 D Magnesium 1.9 Total Bilirubin 0.3 AST 17 ALT 18 Alkaline Phosphatase 54 Total Protein 5.6 L Albumin 3.3 L Globulin 2.3 L Albumin/Globulin Ratio 1.4 Triglycerides 155 H Cholesterol 190 LDL Cholesterol, Calc 111 VLDL Cholesterol, Calc 31 H HDL Cholesterol 48 Cholesterol/HDL Ratio 4.0 Diagnostic Findings echo - normal EF, normal valve function, no pericardial effusion Chest X-Ray 07/25/25 17:26 Clinical History: Possible stroke Technique: A frontal view of the chest was obtained Findings: There are no confluent pulmonary infiltrates. The heart size is within normal limits. No pleural effusion or pneumothorax is seen. There is no definite pulmonary nodule. No fracture is noted. No foreign body is seen Impression: No active disease Electronically signed by Zach Harris 07-25-2025 6:[address] 07/25/25 17:26 Technique: Axial computed tomography images were obtained of the brain from the vertex to the skull base without intravenous contrast. Findings: There is no sign of intracranial hemorrhage. There is normal mcnally-white matter differentiation with no sign of acute or old infarction. No midline shift or other form of herniation is identified. There is no hydrocephalus. No obvious mass lesion is seen on this noncontrast examination. The visualized portions of the orbits and paranasal sinuses appear unremarkable. The mastoid air cells appear clear Impression: Unremarkable noncontrast CT of the brain Electronically signed by Zach Harirs 07-25-2025 7:28 PM Head CTA 07/25/25 17:26 Technique: Axial computed tomography images were obtained of the brain after the administration of intravenous contrast according to the CT angiogram protocol Findings: No definite stenosis or aneurysm is seen of the anterior, middle, or posterior cerebral artery circulations. The visualized vertebral arteries and the basilar artery appear unremarkable Impression: No definite stenosis or aneurysm of the intracranial arteries Electronically signed by Zach Harris 07-25-2025 7:31 PM Neck CTA 07/25/25 17:26 Technique: Axial computed tomography images were obtained of the neck after the administration of intravenous contrast according to the CT angiogram protocol Findings: No stenosis is seen of the common carotid arteries bilaterally. The carotid bulbs appear normal. The remainder of the internal carotid arteries appear patent bilaterally. No stenosis of the external carotid arteries is seen The vertebral arteries are patent bilaterally with no significant stenosis seen. The visualized thoracic aorta appears unremarkable Impression: No definite stenosis of the neck arteries Electronically signed by Zach Harris 07-25-2025 7:32 PM Brain MRI 07/25/25 21:52 EXAM: MR brain wo con CLINICAL HISTORY: cva, ms, cerebritis workup TECHNIQUE: Multisequential and multiplanar images of the brain were submitted for review without contrast. COMPARISON: CT, 07/25/2025 17:38:00 OFFICE COORDINATOR RECEPTIONIST FINDINGS: The brain shows normal morphology, signal intensity, and volume for age. No focal parenchymal lesions are seen. No intracranial hemorrhage, mass effect, midline shift, extra-axial collection, or hydrocephalus is identified. Ventricles, sulci, and basal cisterns are symmetric and normal in size and configuration. Diffusion-weighted sequences show no evidence of acute ischemic infarction. Midline structures including the pituitary gland, corpus callosum, pineal region, and brainstem are unremarkable. The craniovertebral junction is within normal limits. No calvarial abnormalities are identified. The paranasal sinuses and mastoid air cells are clear. Orbital structures are unremarkable. Appropriate flow voids are present in the visualized intracranial vessels. IMPRESSION: 1. No acute ischemia, space occupying mass, or other acute intracranial pathology is demonstrated. 2. No interval changes. Electronically signed by Jamie Cunningham 07-26-2025 01:28 AM Cervical Spine MRI 07/26/25 00:03 EXAM: MR cervical spine wo con CLINICAL HISTORY: left ue tingling TECHNIQUE: Multisequential and multiplanar images of the cervical spine were submitted for review without contrast. COMPARISON: none FINDINGS: Straightening of the cervical lordosis. Small T1/T2 hypointense focus seen in C5 vertebral body. The cord is normal in caliber and signal. There is no cerebellar ectopia. No abnormal bone marrow signal demonstrated throughout the cervical spine to suggest a fracture. C2-C3: No disc herniation. No central canal stenosis or neuroforaminal narrowing. C3-C4: Small posterior disc osteophyte complex indenting thecal sac. No significant central canal stenosis or neuroforaminal narrowing. C4-C5: Small posterior disc osteophyte complex indenting thecal sac. No significant central canal stenosis or neuroforaminal narrowing. C5-C6: Small posterior disc osteophyte complex indenting thecal sac. No significant central canal stenosis or neuroforaminal narrowing. C6-C7: No disc herniation. No central canal stenosis or neuroforaminal narrowing. C7-T1: No disc herniation. No central canal stenosis or neuroforaminal narrowing. The visualized paraspinal soft tissues are grossly unremarkable. IMPRESSION: 1. C3-C4: Small posterior disc osteophyte complex indenting thecal sac. No significant central canal stenosis or neuroforaminal narrowing. 2. C4-C5: Small posterior disc osteophyte complex indenting thecal sac. No significant central canal stenosis or neuroforaminal narrowing. 3. C5-C6: Small posterior disc osteophyte complex indenting thecal sac. No significant central canal stenosis or neuroforaminal narrowing. 4. Small T1/T2 hypointense focus seen in C5 vertebral body. Electronically signed by Jamie Cunningham 07-26-2025 01:40 AM PG Care Time/CCT Total # of Minutes Spent Total Time Spent with Patient: Total time spent is greater than 50% in coordination of care (as documented) at patient's floor/unit and/or counseling patient: Coding Level of Care Code 14651 SUB INP/OBS CARE 3/50MIN Diagnoses Stroke-like symptoms R29.90 Ambulatory dysfunction R26.2 Vitreous hemorrhage of left eye H43.12 Dizziness R42 Malaise and fatigue R53.81; R53.83 Fibromyalgia M79.7 Discoid lupus L93.0 Deonte thyroiditis E06.3 Hypothyroidism E03.9 Chronic right flank pain R10.9; G89.29 Chest pain R07.9
--- NOTE | 2025-07-26 15:35 | XCELERA ---
[id number] \\[id number]___[id number].pdf
[2025-07-27 07:27] LABS: Hematocrit (blood only) 31.7 % (37.0-47.0); Hemoglobin 10.6 g/dl (12.0-16.0); Immature Granulocytes # (auto) 0.03 K/uL (0.01-0.20); Immature Granulocytes % (auto) 0.4 %; Mean Corpuscular Hemoglobin 27.5 pg (25.0-34.0); Mean Corpuscular Volume 82.3 fL (80.0-100.0); Platelet Count 277 K/uL (130-400); RDW Standard Deviation 46.5 fL (36.4-46.3); Red Blood Count 3.85 M/uL (4.20-5.40); White Blood Count 6.98 K/ul (4.8-10.8)
[2025-07-27 07:40] VITALS: BP 139/84; PULSE 89; TEMP 97.7; O2SAT 98
[2025-07-27 07:46] LABS: Iron 37.0 mcg/dl (35-150); Total Iron Binding Cap Calc 357.0 mcg/dl (250-450); Transferrin 255.0 mg/dl (200-360); Transferrin (FE) Percent Satur 10.0 % (15-50)
[2025-07-27 07:47] LABS: Anion Gap 5.0 (3-11); Blood Urea Nitrogen 14.0 mg/dl (6-23); Calcium 8.1 mg/dl (8.6-10.3); Carbon Dioxide 24.0 mmol/L (21-32); Chloride 109.0 mmol/L (98-107); Creatinine Clr Calc Pharmacy 99.1 ml/min; Glucose 94.0 mg/dl (70-99(Fasting)); Potassium 3.8 mmol/L (3.5-5.1); Sodium 138.0 mmol/L (136-145)
[2025-07-27 08:06] LABS: Ferritin 7.1 ng/ml (8-388)
[2025-07-27] MEDS: OPTIRAY 320 100ml IV ONE (08:14)
--- NOTE | 2025-07-27 08:30 | CT Scan Report ---
ABDOMEN AND PELVIS CT WITH IV CONTRAST CT DOSE: 1277.18 mGy.cm HISTORY: right flank pain, history of lupus TECHNIQUE: Multiaxial CT images of the abdomen and pelvis were performed following the IV administrat ion of 90 cc of Optiray, A dose lowering technique was utilized adhering to the principles of ALARA. COMPARISON STUDY: None FINDINGS: ABDOMEN: Gallbladder is surgically absent. Liver, spleen, pancreas, and adrenal glands are unremarkab le. Kidneys show no hydronephrosis or calculi. No abdominal aortic aneurysm. Pelvis: Urinary bladder is decompressed. Uterus and adnexa are grossly unremarkable. There is moderat e retained stool. No bowel inflammation or obstruction seen. Normal appendix. No free fluid, free air , or abscess. No enlarged adenopathy. Osseous structures: No acute osseous findings. IMPRESSION: No acute findings. ACT 112: Negative or not required by law. The above report was generated using voice recognition software. It may contain grammatical, syntax o r spelling errors. Electronically signed by: Regan Holley M.D. 07/27/2025 8:28 AM
--- NOTE | 2025-07-27 09:12 | Discharge Summary ---
Discharge Summary Date of Service July 27, 2025 Principal Dx & Hospital Course #1 = Principal Diagnosis (1) Stroke-like symptoms: (2) Ambulatory dysfunction: (3) Vitreous hemorrhage of left eye: (4) Dizziness: (5) Malaise and fatigue: (6) Fibromyalgia: (7) Discoid lupus: (8) Deonte thyroiditis: (9) Hypothyroidism: (10) Chronic right flank pain: (11) Chest pain: Plan 49yo female with history of Deonte's thyroiditis/hypothyroidism, fibromyalgia, discoid lupus, Raynaud's disease, iron deficiency anemia, factor V Leiden mutation. Patient presented with 2-3 days of dizziness, balance issues, speech deficits, left eye blurry vision, and dyspnea/pleuritic type chest discomfort. She was found to have a left eye vitreous hemorrhage with optometry in [place] on 07/25 and was advised urgent referral to a retinal specialist to ensure she did not have a retinal detachment with retinal bleeding. No trauma to the face/eye by report. She has also gone earlier this week to [facility] due to the cp/dyspnea and, by report, had CT chest that was negative; we have requested that CT report from [facility]. #ambulatory dysfunction/speech deficits/dizzinesspatient with many nonspecific neurologic symptoms. Head CT and CTAs negative in the ED. Mild hypophosphatemia however unlikely to be contributing to symptoms. TSH WNL. No signs of acute infectionno leukocytosis, VSS, CXR and UA negative. Differential includes but not limited to CVA, demyelinating process, lupus cerebritis. Ordered sed rate, CRP, B12, tick panel Ordered brain MRI and cervical spine MRI Stroke without TNK order set; PT/OT ordered, A1c and lipid panel with a.m. labs, echocardiogram Neurology consulted #Hypophosphatemia -Phos 2.2 upon presentation -s/p IV replacement -today's level wnl -doubt this contributed to any of her presenting symptoms #left eye vitreous hemorrhage -diagnosed by optometry in [place] on 07/25 -was referred to a Dr Barnett at [facility] but did not make it to that appt as she got admitted here -will have secretarial staff called [facility] to determine the next available urgent appt for Ms Patel (preferably the day she is discharged) #chest pain - -resolved -obtain CTA chest report from [facility] -echo here with normal LV function and normal LV wall motion -troponin negative -unlikely cardiac in etiology -await CT report #hematuria - -noted on urinalysis -chronic per patient -with her right flank pain will obtain CT a/p for further characterization - r/o obstructing stone, etc. #Deonte's thyroiditis -TSH wnl -continue levothyroxine #discoid Lupus -by report patient takes prednisone as needed approximately once a month? -discussed her care with Dr Lugo --- in light of exam findings, normal ESR/CRP, etc unlikely to have systemic SLE at this time -no discoid lupus lesions at this time as well #Fibromyalgia -continue baclofen #Insomnia -continue diazepam as needed -melatonin as needed #Factor V Leiden - -reported in [facility] records, neurological event in 2001 however patient said this was very nonspecific and she does not remember the event. VTE ppx: SCDs, high risk with factor V Leiden however brain MRI pending Dispo: med/tele Admission HPI Per Admitting Provider Patient is a 49-year-old female with a past medical history of Deonte thyroiditis, fibromyalgia, lupus, Raynaud's disease, iron deficiency anemia, factor V Leiden. Patient presented for a neurologic workup after several days of dizziness, balance issues, speech deficits, or blurry vision. She was found to have a retinal hemorrhage with an custodial manager 07/25. Is being admitted for further neurologic workup including MRI. Patient seen at bedside with her 2 daughters and son-in-law present. Patient stated that she follows with Dr. Lopez who is a private practice however has previously followed with timothy and [facility] this past winter. Patient stated symptoms over the past 2 to 3 weeks have been worsening and she has had a significant decline after a migraine approximately 1 week ago. Her migraine was in her left eye and caused her to vomit significantly. Since then she has had dyspnea, heart palpitations, achy chest pain, shakiness, dizziness, insomnia, confusion, difficulty finding words, balance issues, and left eye fuzziness. She does not use a walker or cane at baseline however has had issues ambulating with her current balance issues. Her daughter noted she had difficulty on the stairs outside which she has never had an issue with before. Patient also states she had vision loss of her left eye 2 to 3 days ago, she can see outlines of figures however not specifics. Patient went to [facility] yesterday due to the chest pain and stated she had a CT of her chest which was negative however they stated no imaging of her head for neurologic symptoms. She went to her custodial manager today who dilated her left pupil and diagnosed her with a retinal/vitreous left eye hemorrhaging placed her for an urgent referral to a retinal physician. She ended up not going because when she called them they told her to come into the ED for stroke workup. She currently is relatively asymptomatic at bedside other than left vision loss however symptoms come and go. Her family is greatly concerned about her recent decline. Patient denies any nicotine use. She has 1-2 alcohol beverages occasionally, denies daily use. She denies past history of CVA or family history of CVA. She takes prednisone approximately once a month with a rash associated with her menses, last took this 2 days ago. She has a noted history of factor V 5 Leyden with a neurologic event in 2001 however stated she was never diagnosed with anything specific and this was during her period. Noted she was treated for Lyme's disease in 2011 which she stated was undiagnosed for 30 years. She denies any recent tick bites. She is due for her evening medications, ordered. She wishes to be full code. Regarding 2+ blood seen on urinalysis, patient stated this is always there and she has never had any further workup. Discussed outpatient referral to urology for further workup including cystoscopy. Patient was previously seen by [facility] rheumatology however is being admitted to [facility] due to insurance. Reviewed [facility] rheumatology records from 09/06/2023. Previous RENZO 160, negative Cisse and DNA antibodies. Noted history of factor V Leyden and neurologic event in 2012, RAISA, lupus erythematous/discoid lupus. Discharge Exam gen - looks chronically unwell/tired-appearing, otherwise NAD eyes - PERRL; sclera/conjunctiva clear neck - no JVD; +lymph nodes b/l; no goiter axillae - ?lymph node on left (1cm or larger) but uncertain mouth - no ulcers heart - RRR, s1 s2, no murmur lungs - CTA b/l abd - soft, spleen tip palpable?, BS+, NT, no hepatomegaly, ND ext - no edema, pulses b/l feet 2+ b/l skin - no rashes musculo - no synovitis any joint (small or large x 4 exts) psych - restricted affect, a/o x 3 Discharge Plan Discharge Items Patient Disposition: Home - Self-Care Reason For Visit: dizziness, left eye visual loss Discharge Diagnosis: 1. left eye vitreous hemorrhage; need to r/o retinal detachment, etc. 2. dizziness, other neurological symptoms - MRI brain negative for stroke, multiple sclerosis, tumor, bleeding, etc. 3. iron deficiency anemia 4. low-normal vitamin B12 level of 291 5. low-normal folic acid level of 6 6. hypothyroidism (TSH level normal at 3) 7. menorrhagia (heavy menstrual cycles) 8. chronic fatigue Activity: Per Instructions section Driving/Machine Use: NO DRIVING UNTIL THE EYE DOCTOR CLEARS YOU Non-emergency contact: Primary Care Provider and Cartographic Technician Call non-emergency contact if: you have any medication questions and your symptoms worsen Follow-up/Referrals: Jerrell Lopez MD [Primary Care Provider] - (within 5-7 days; please discuss a sleep aid, iron infusions, referral to gastroenterology for colonoscopy/upper endoscopy, etc.) Kelsie Falk MD [Outside Practitioners] - 07/27/25 2:15 pm (If you are not able to keep this appointment, please call the office to be rescheduled as soon as possible) Diet: Regular Addtl Attending Provider Instructions: Mrs Patel, Sanchez were hospitalized due to a variety of problems including recently diagnosed left eye vitreous hemorrhage, dizziness, fatigue, balance troubles, speech difficulty, chest pain, etc. You underwent a large work-up including MRI brain, MRI of your cervical spine (neck), echocardiogram (ultrasound of your heart), CT scan of your abdomen, and CT scans of the blood vessels of your head/neck. All of the studies returned normal/negative. No blockages were found in the blood vessels of the head/neck, echocardiogram showed normal heart function, no stroke was seen, and the CT scan of your abdomen did not show any swollen glands/tumors/kidney stones/other abnormalities. We did not see any signs of multiple sclerosis either on the MRI brain/neck. You do have severe iron deficiency along with borderline low levels of vitamin B12 and folic acid. All 3 vitamins are essential "building blocks" of your red cells. Please talk to your family doctor about securing outpatient IV iron infusions. In the meantime, you can take sjlv-ybm-rxovohn iron (see below). It is imperative that you see the retinal polisher eyeglass frames in [place] today to check the healthy of your left eye retina. See appointment information for details. Recommendations - 1. take fqmt-txi-nfwqsgk vitamin B12 1000mcg daily for about 4-6 months; have your family doctor recheck your level in about 6 months. 2. take folic acid 1mg daily for 30 days then stop; have your folic acid level rechecked in the next couple of months. 3. take bhot-uxr-nwxydjp ferrous sulfate (iron) 325mg once daily with a glass of orange juice. The iron will turn your stools dark and may cause constipation. If you do get IV iron down the line the oral iron can be stopped at that time. 4. NO DRIVING a car or operating heavy machinery UNLESS the eye doctor gives you permission to do so. Return to any hospital if - -you have recurrent chest pains or shortness of breath -you develop new neurological symptoms (difficulty speaking/swallowing, weakness of any limb, numbness of any limb, extreme vertigo/dizziness, etc) -any other concerns Safe travels and it was our pleasure to care for you, -Naif Lance Pending Studies at Discharge: Yes Studies:: tick-borne disease studies; mono testing Stand-Alone Forms: My [facility] [place], Smoking Cessation Medications and DC Order Prescriptions: New cyanocobalamin (vitamin B-12) 1,000 mcg tablet 1,000 mcg PO DAILY Qty: 90 1RF Rx Instructions: purchase rywc-ysg-umyswen; take for 4-6 months folic acid 1 mg tablet 1 mg PO DAILY Qty: 30 0RF ferrous sulfate 325 mg (65 mg iron) tablet 325 mg PO DAILY Qty: 90 1RF Rx Instructions: purchase dabt-pxv-cihqsho Continued baclofen 20 mg tablet 20 mg PO BID levothyroxine 100 mcg tablet 100 mcg PO DAILYBB diazepam 2 mg tablet 2 mg PO HS PRN (Reason: Sleep) omeprazole 20 mg capsule,delayed release(DR/EC) 20 mg PO DAILYBB fluticasone propionate 50 mcg/actuation spray,suspension 1 spray INTRANASAL DAILY Held prednisone 20 mg tablet 20 mg PO DAILY Hold Instructions: hold unless your family doctor or your [facility] advise you to take Rx Instructions: script filled 9/3/25 take for 7 days Discharge Orders: Discharge Order (Routine); Ordered 07/27/25 Ordered By: Naif Lance Admission Data Admit Date/Time: 07/25/25 22:03 Attending Provider: Naif Lance Admit Provider: Keon Correa Primary Care Provider: Jerrell Lopez Other Providers: Keon Correa; Mario Angel Hospital Stay Data Consultations 07/25/25 21:45 ED Decision to Admit Stat 07/26/25 02:00 Consult Neurology Routine Diagnostic Imagining Performed 07/25/25 17:26 CT angio head w con Stat CT angio neck with con Stat CT head/brain wo con Stat 07/25/25 21:52 MRI Brain [MR brain wo con] Stat 07/26/25 00:03 MR cervical spine wo con Stat 07/27/25 06:49 CT Abd and Pelvis [CT abd pelvis IV con only] Urgent Pending Results Patient Have Any Pending Studies at Discharge: Yes Discharge Instructions Given to Patient (Per Discharging Provider) Mrs Patel, Sanchez were hospitalized due to a variety of problems including recently diagnosed left eye vitreous hemorrhage, dizziness, fatigue, balance troubles, speech difficulty, chest pain, etc. You underwent a large work-up including MRI brain, MRI of your cervical spine (neck), echocardiogram (ultrasound of your heart), CT scan of your abdomen, and CT scans of the blood vessels of your head/neck. All of the studies returned normal/negative. No blockages were found in the blood vessels of the head/neck, echocardiogram showed normal heart function, no stroke was seen, and the CT scan of your abdomen did not show any swollen glands/tumors/kidney stones/other abnormalities. We did not see any signs of multiple sclerosis either on the MRI brain/neck. You do have severe iron deficiency along with borderline low levels of vitamin B12 and folic acid. All 3 vitamins are essential "building blocks" of your red cells. Please talk to your family doctor about securing outpatient IV iron infusions. In the meantime, you can take qkfz-loh-sbrztoo iron (see below). It is imperative that you see the retinal polisher eyeglass frames in [place] today to check the healthy of your left eye retina. See appointment information for details. Recommendations - 1. take cymw-jth-bqzwwxb vitamin B12 1000mcg daily for about 4-6 months; have your family doctor recheck your level in about 6 months. 2. take folic acid 1mg daily for 30 days then stop; have your folic acid level rechecked in the next couple of months. 3. take pwwx-iky-jrcunum ferrous sulfate (iron) 325mg once daily with a glass of orange juice. The iron will turn your stools dark and may cause constipation. If you do get IV iron down the line the oral iron can be stopped at that time. 4. NO DRIVING a car or operating heavy machinery UNLESS the eye doctor gives you permission to do so. Return to any hospital if - -you have recurrent chest pains or shortness of breath -you develop new neurological symptoms (difficulty speaking/swallowing, weakness of any limb, numbness of any limb, extreme vertigo/dizziness, etc) -any other concerns Safe travels and it was our pleasure to care for you, -Naif Lance Coding Diagnoses Stroke-like symptoms R29.90 Ambulatory dysfunction R26.2 Vitreous hemorrhage of left eye H43.12 Dizziness R42 Malaise and fatigue R53.81; R53.83 Fibromyalgia M79.7 Discoid lupus L93.0 Deonte thyroiditis E06.3 Hypothyroidism E03.9 Chronic right flank pain R10.9; G89.29 Chest pain R07.9
[2025-07-27 09:24] LABS: EBV Early Antigen IgG Ab Positive (Negative); EBV Early Antigen IgG Quant > 150.0 U/mL (< 9.0); EBV Nuclear Antigen IgG Ab Positive; EBV Nuclear Antigen IgG Quant 306.0 U/mL (< 18.0)
[2025-07-27 09:26] LABS: EBV IgG Quant 685.0 U/mL (< 18.0); EBV IgM Quant 18.3 U/mL (< 36.0)
--- NOTE | 2025-07-28 05:38 | Electrocardiogram Report ---
Test Reason : Blood Pressure : */* mmHG Vent. Rate : 88 BPM Atrial Rate : 88 BPM P-R Int : 158 ms QRS Dur : 76 ms QT Int : 376 ms P-R-T Axes : -29 -4 -17 degrees QTcB Int : 454 ms Normal sinus rhythm Normal ECG When compared with ECG of 21-Aug-2002 15:51, Questionable change in QRS axis Inverted T waves have replaced nonspecific T wave abnormality in Inferior leads Confirmed by Deven Knutson ([id number]) on 07/28/2025 5:37:34 AM Referred By: REFERRED SELF Confirmed By: Deven Knutson
== END 2025-07-27 11:24 | disposition home or self-care (01) ==
LOC: 2N 16:58 → ED 16:58 → SUATTDRO 22:03 → 2N 07-26 01:31